=== PATIENT | female | born 1995 | race Hispanic/Latino ===

== ENCOUNTER 2018-01-19 18:58 | Emergency (ER) | payer BC ==
[2018-01-19 18:59] VITALS: BMI 22.6
[2018-01-19] MEDS ORDERED: Sodium Chloride 0.9% 1,000 ML IV STA (20:34)
[2018-01-19 21:25] LABS: URINE BILIRUBIN NEGATIVE (NEGATIVE); URINE BLOOD SMALL (NEGATIVE); URINE GLUCOSE (UA) NEGATIVE (NEGATIVE); URINE LEUKOCYTE ESTERASE NEGATIVE Leu/uL (NEGATIVE); URINE PROTEIN NEGATIVE mg/dL (<30 mg/dL); URINE UROBILINOGEN 0.2 E.U./dL (<1 E.U./dL)
[2018-01-19 21:33] LABS: URINE APPEARANCE CLEAR (CLEAR); URINE COLOR YELLOW (YELLOW)
[2018-01-19 21:37] LABS: BASO # 0.02 K/mm3 (0.0-2.0); BASO % 0.3 % (0.0-3.0); EOS % 0.5 % (1.5-5.0); GRAN # 2.98 (1.4-6.5); HEMOGLOBIN 14.1 g/dL (12.0-16.0); LYMPH # 3.5 (1.2-3.4); MEAN CELL VOLUME 89.8 fl (80.0-105.0); MEAN CORPUSCULAR HEMOGLOBIN 30.1 pg (25.0-35.0); MEAN CORPUSCULAR HGB CONC 33.5 g/dl (31.0-37.0); MEAN PLATELET VOLUME 9.4 fl (7.0-11.0); MONO # 0.9 (0.1-0.6); MONO % 12.2 % (1.0-6.0); RBC 4.69 10^6/uL (3.5-6.1); RED CELL DISTRIBUTION WIDTH 13.2 % (11.5-14.5); WHITE BLOOD COUNT 7.5 10^3/uL (4.5-11.0)
[2018-01-19 21:42] LABS: ALB/GLOB RATIO 1.2 (1.1-1.8); ALT/SGPT 167 U/L (7-56); AST/SGOT 119 U/L (14-36); BLOOD UREA NITROGEN 8 mg/dL (7-21); CALCIUM 9.2 mg/dL (8.4-10.5); GFR NON-AFRICAN AMERICAN > 60; LIPASE 33 U/L (23-300)
[2018-01-19 21:44] LABS: URINE BACTERIA MOD (NEG); URINE WBC 0 - 2 /hpf (0-6)
[2018-01-19] MEDS ORDERED: Iohexol 350 MG/100 ML VIAL ONE (21:52)
--- NOTE | 2018-01-19 22:06 | ED PDOC ---
Arrival/HPI <Andrea Delgado - Last Filed: 01/19/18 22:27> - General Historian: Patient - History of Present Illness Narrative History of Present Illness (Text): Mechelle Leyva is a 22 year old female who presents to the Emergency department complaining of chronic abdominal pain which worsened today while driving back from [place]. Patient states pain is located in the upper abdomen/epigastric region with some associated nausea and some episodes of diarrhea today. Patient has been seen by a traveling auditor and is being worked up for IBS. Patient denies any radiation to the back or urinary symptoms. Patient was seen at Urgent Care earlier today, had a rapid influenza performed which was negative due to complaints of fever, chills today, and nasal congestion. Patient also denies any cough. Symptom Onset: Gradual Symptom Course: Unchanged Activities at Onset: Light Context: Home <Martina Peoples - Last Filed: 01/20/18 00:54> - General Chief Complaint: Flu-like Symptoms Time Seen by Provider: 01/19/18 19:25 Past Medical History - Provider Review Nursing Documentation Reviewed: Yes - Past Medical History Past Medical History: No Previous - Psychiatric Hx Depression: No Hx Emotional Abuse: No Hx Physical Abuse: No Hx Substance Use: No - Past Surgical History Past Surgical History: No Previous - Surgical History Hx Orthopedic Surgery: Yes (L ACL October 2017) Other/Comment: breast reduction October 2016 - Suicidal Assessment Feels Threatened In Home Enviroment: No <Martina Peoples - Last Filed: 01/20/18 00:54> Family/Social History - Physician Review Nursing Documentation Reviewed: Yes Family/Social History: Unknown Family HX Smoking Status: Never Smoked Hx Alcohol Use: Yes Frequency of alcohol use: Socially Hx Substance Use: No Hx Substance Use Treatment: No <Martina Peoples - Last Filed: 01/20/18 00:54> Allergies/Home Meds <Andrea Delgado - Last Filed: 01/19/18 22:27> <Martina Peoples - Last Filed: 01/20/18 00:54> Allergies/Adverse Reactions: Allergies No Known Allergies Allergy (Verified 10/03/13 19:18) Review of Systems - Physician Review All systems were reviewed & negative as marked: Yes - Review of Systems Constitutional: Fevers Eyes: Normal ENT: Normal Respiratory: Other (+nasal congestion). absent: SOB, Cough Cardiovascular: Normal. absent: Chest Pain Gastrointestinal: Abdominal Pain, Diarrhea, Nausea. absent: Vomiting Genitourinary Female: Normal. absent: Dysuria, Frequency, Hematuria, Urine Output Changes Musculoskeletal: Normal. absent: Back Pain, Neck Pain Skin: Normal. absent: Rash Neurological: Normal. absent: Headache, Dizziness Endocrine: Normal Hemo/Lymphatic: Normal Psychiatric: Normal <Martina Peoples - Last Filed: 01/20/18 00:54> Physical Exam Vital Signs Temp Pulse Resp BP Pulse Ox 01/19/18 20:04 99.1 F 85 18 126/81 100 <Andrea Delgado - Last Filed: 01/19/18 22:27> Vital Signs Reviewed: Yes Vital Signs Temp Pulse Resp BP Pulse Ox 01/19/18 20:04 99.1 F 85 18 126/81 100 Temperature: Afebrile Blood Pressure: Normal Pulse: Regular Respiratory Rate: Normal Appearance: Positive for: Well-Appearing, Non-Toxic, Comfortable Pain Distress: None Mental Status: Positive for: Alert and Oriented X 3 - Systems Exam Head: Present: Atraumatic, Normocephalic Pupils: Present: PERRL Extroacular Muscles: Present: EOMI Conjunctiva: Present: Normal Mouth: Present: Moist Mucous Membranes Neck: Present: Normal Range of Motion Respiratory/Chest: Present: Clear to Auscultation, Good Air Exchange. No: Respiratory Distress, Accessory Muscle Use Cardiovascular: Present: Regular Rate and Rhythm, Normal S1, S2. No: Murmurs Abdomen: Present: Tenderness (Minimal epigastric tenderness). No: Distention, Peritoneal Signs Back: Present: Normal Inspection Upper Extremity: Present: Normal Inspection. No: Cyanosis, Edema Lower Extremity: Present: Normal Inspection. No: Edema Neurological: Present: GCS=15, CN II-XII Intact, Speech Normal Skin: Present: Warm, Dry, Normal Color. No: Rashes Psychiatric: Present: Alert, Oriented x 3, Normal Insight, Normal Concentration <Martina Peoples - Last Filed: 01/20/18 00:54> Medical Decision Making - Lab Interpretations Lab Results: 01/19/18 21:29 01/19/18 21:29 Lab Results 01/19/18 21:29: WBC 7.5, RBC 4.69, Hgb 14.1, Hct 42.1, MCV 89.8, MCH 30.1, MCHC 33.5, RDW 13.2, Plt Count 320, MPV 9.4, Gran % 40.0 L, Lymph % (Auto) 47.0 H, Simpson % (Auto) 12.2 H, Eos % (Auto) 0.5 L, Baso % (Auto) 0.3, Gran # 2.98, Lymph # (Auto) 3.5 H, Simpson # (Auto) 0.9 H, Eos # (Auto) 0.0, Baso # (Auto) 0.02 01/19/18 21:29: Sodium 137, Potassium 4.2, Chloride 103, Carbon Dioxide 24, Anion Gap 14, BUN 8, Creatinine 0.8, Est GFR ( Amer) > 60, Est GFR (Non- Af Amer) > 60, Random Glucose 77, Calcium 9.2, Total Bilirubin 0.5, AST 119 H, ALT 167 H, Alkaline Phosphatase 66, Total Protein 7.3, Albumin 4.0, Globulin 3.3, Albumin/Globulin Ratio 1.2, Lipase 33 01/19/18 21:29: Influenza Typ A,B (EIA) Negative for flu a/b 01/19/18 19:59: Urine Color Yellow, Urine Appearance Clear, Urine pH 6.0, Ur Specific Melber >= 1.030, Urine Protein Negative, Urine Glucose (UA) Negative, Urine Ketones 15 H, Urine Blood Small H, Urine Nitrate Negative, Urine Bilirubin Negative, Urine Urobilinogen 0.2, Ur Leukocyte Esterase Negative, Urine RBC 5 - 10, Urine WBC 0 - 2, Ur Epithelial Cells 4 - 5, Urine Bacteria Mod - RAD Interpretation Radiology Orders: 01/19/18 20:33 ABD & PELVIS IV CONTRAST ONLY [CT] Stat ABDOMEN COMPLETE [US] Stat - Medication Orders Current Medication Orders: Discontinued Medications Sodium Chloride (Sodium Chloride 0.9%) 1,000 mls @ 999 mls/hr IV .Q1H1M STA Stop: 01/19/18 21:34 Last Admin: 01/19/18 21:31 Dose: 999 mls/hr eMAR Start Stop Document 01/19/18 21:31 CNR (Rec: 01/19/18 21:32 CNR [id number]) Intravenous Solution Start Date 01/19/18 Start Time 21:32 End Date 01/19/18 End time 22:32 Total Infusion Time 60 Pantoprazole Sodium (Protonix Inj) 40 mg IVP STAT STA Stop: 01/19/18 20:35 Last Admin: 01/19/18 21:32 Dose: 40 mg IVP Administration Document 01/19/18 21:32 CNR (Rec: 01/19/18 21:32 CNR [id number]) Charges for Administration # of IVP Administrations 1 <Andrea Delgado - Last Filed: 01/19/18 22:27> ED Course and Treatment: Impression: 22 year old female complaining of chronic abdominal pain, nausea, diarrhea, fever, chills, and nasal congestion. Plan: -- CT Abdomen and Pelvis -- US Abdomen -- Labs, lipase -- Rapid influenza -- Urinalysis -- IV fluids -- Protonix -- Reassess and disposition Progress Notes: Patient is nontoxic well appearing with stable vital signs presenting with [severe] abdominal pain CBC wnl CMP wnl Lipase wnl Urinalysis Ultrasound COMMENTS: The liver is of uniform echo texture without evidence of mass or defect measuring 14.39 x 13.1 cm. There is no intra or extrahepatic biliary ductal dilatation. The common bile duct measures 0.38 cm. The gallbladder is physiologically distended without evidence of calculi. The gallbladder wall is not thickened measuring 0.23 cm and there is no pericholecystic fluid. There is no abdominal ascites. The visualized portions of abdominal aorta and inferior vena cava present no abnormalities. The visualized portions of the pancreas are unremarkable. The spleen is of uniform echo texture and does not appear enlarged measuring 10.48 x 3.31 cm. The right kidney measures 9.79 x 3.47 x 5.18 cm and the left kidney measures 9.63 x 4.79 x 5.69 cm. Both kidneys are free of hydronephrosis. IMPRESSION: Normal study. CAT scan: FINDINGS: LUNG BASES: The lung bases appear clear. No pleural effusions are seen. LIVER: Unremarkable. GALLBLADDER AND BILE DUCTS: The gallbladder appears within normal limits. No radioopaque gallstones are seen. No biliary ductal dilatation is evident. PANCREAS: Unremarkable. SPLEEN: Unremarkable. ADRENAL GLANDS: Unremarkable. KIDNEYS, URETERS, AND BLADDER: The kidneys appear within normal limits. There is no hydronephrosis or hydroureter. No urinary calculi are seen. STOMACH AND BOWEL: Unremarkable appearance of the stomach and bowel. No evidence of bowel obstruction. No evidence suggesting enteritis or colitis. APPENDIX: No evidence of acute appendicitis on CT examination. PERITONEUM: No free fluid. No free air. LYMPH NODES: No lymphadenopathy is evident. REPRODUCTIVE: Unremarkable as visualized. VASCULATURE: No evidence of abdominal aortic aneurysm. BONES: No aggressive appearing osseous lesion. No acute osseous pathology evident. IMPRESSION: No acute intra-abdominal or pelvic abnormality. Patient reassessment: pt is non toxic well appearing; no distress. stable vitals . symptoms resolved after GI cocktail. Discussed all results with patient in depth. advised f/u with GI specialist. advised taking pepcid daily and return if symptoms worsen,persist or if new symptoms develop. Patient verbalizes understanding of discharge instructions and need for immediate followup. all aspects of this case were discussed the attending of record. Impression: Abdominal pain, elevated lfts increase fluids follow up with GI specialist within the next 2 days pepcid 1 tablet twice daily follow up with the primary care physician within the next 2 days. return immediately if symptoms worsen,persist or if new symptoms develop. Reassessment Condition: Re-examined, Improved - Lab Interpretations Lab Results: 01/19/18 21:29 01/19/18 21:29 Lab Results 01/19/18 21:29: WBC 7.5, RBC 4.69, Hgb 14.1, Hct 42.1, MCV 89.8, MCH 30.1, MCHC 33.5, RDW 13.2, Plt Count 320, MPV 9.4, Gran % 40.0 L, Lymph % (Auto) 47.0 H, Simpson % (Auto) 12.2 H, Eos % (Auto) 0.5 L, Baso % (Auto) 0.3, Gran # 2.98, Lymph # (Auto) 3.5 H, Simpson # (Auto) 0.9 H, Eos # (Auto) 0.0, Baso # (Auto) 0.02 01/19/18 21:29: Sodium 137, Potassium 4.2, Chloride 103, Carbon Dioxide 24, Anion Gap 14, BUN 8, Creatinine 0.8, Est GFR ( Amer) > 60, Est GFR (Non- Af Amer) > 60, Random Glucose 77, Calcium 9.2, Total Bilirubin 0.5, AST 119 H, ALT 167 H, Alkaline Phosphatase 66, Total Protein 7.3, Albumin 4.0, Globulin 3.3, Albumin/Globulin Ratio 1.2, Lipase 33 01/19/18 21:29: Influenza Typ A,B (EIA) Negative for flu a/b 01/19/18 19:59: Urine Color Yellow, Urine Appearance Clear, Urine pH 6.0, Ur Specific Melber >= 1.030, Urine Protein Negative, Urine Glucose (UA) Negative, Urine Ketones 15 H, Urine Blood Small H, Urine Nitrate Negative, Urine Bilirubin Negative, Urine Urobilinogen 0.2, Ur Leukocyte Esterase Negative, Urine RBC 5 - 10, Urine WBC 0 - 2, Ur Epithelial Cells 4 - 5, Urine Bacteria Mod - RAD Interpretation Radiology Orders: 01/19/18 20:33 ABD & PELVIS IV CONTRAST ONLY [CT] Stat ABDOMEN COMPLETE [US] Stat - Medication Orders Current Medication Orders: Discontinued Medications Sodium Chloride (Sodium Chloride 0.9%) 1,000 mls @ 999 mls/hr IV .Q1H1M STA Stop: 01/19/18 21:34 Last Admin: 01/19/18 21:31 Dose: 999 mls/hr eMAR Start Stop Document 01/19/18 21:31 CNR (Rec: 01/19/18 21:32 CNR [id number]) Intravenous Solution Start Date 01/19/18 Start Time 21:32 End Date 01/19/18 End time 22:32 Total Infusion Time 60 Pantoprazole Sodium (Protonix Inj) 40 mg IVP STAT STA Stop: 01/19/18 20:35 Last Admin: 01/19/18 21:32 Dose: 40 mg IVP Administration Document 01/19/18 21:32 CNR (Rec: 01/19/18 21:32 CNR [id number]) Charges for Administration # of IVP Administrations 1 <Martina Peoples - Last Filed: 01/20/18 00:54> - PA / [employer] INST[employer]ER / Resident Statement / has reviewed & agrees with the documentation as recorded. / has examined the patient and agrees with the treatment plan. <Andrea Delgado - Last Filed: 01/19/18 22:27> - Scribe Statement The provider has reviewed the documentation as recorded by the Anita Fairbanks Provider Scribe Attestation: All medical record entries made by the Scribe were at my direction and personally dictated by me. I have reviewed the chart and agree that the record accurately reflects my personal performance of the history, physical exam, medical decision making, and the department course for this patient. I have also personally directed, reviewed, and agree with the discharge instructions and disposition. <Martina Peoples - Last Filed: 01/20/18 00:54> Disposition/Present on Arrival <Andrea Delgado - Last Filed: 01/19/18 22:27> - Present on Arrival Any Indicators Present on Arrival: No History of DVT/PE: No History of Uncontrolled Diabetes: No Urinary Catheter: No History of Decub. Ulcer: No History Surgical Site Infection Following: None - Disposition Have Diagnosis and Disposition been Completed?: Yes Disposition Time: 22:15 Patient Plan: Discharge <CatejackelineMartina - Last Filed: 01/20/18 00:54> - Disposition Diagnosis: Abdominal pain, Elevated liver function tests Disposition: HOME/ ROUTINE Patient Problems: Current Active Problems Problem Status Onset Abdominal pain Acute Elevated liver function tests Acute Condition: GOOD Discharge Instructions (ExitCare): Acute Abdomen (Belly Pain), Adult (DC) Additional Instructions: increase fluids follow up with GI specialist within the next 2 days pepcid 1 tablet twice daily follow up with the primary care physician within the next 2 days. return immediately if symptoms worsen,persist or if new symptoms develop. Prescriptions: Famotidine [Pepcid] 20 mg PO DAILY #30 tab Referrals: Iraj King MD [Staff Provider] - Follow up with primary Magda Clemens MD [Medical Doctor] - Follow up with primary [facility] [Outside] - Follow up with primary Forms: [facility] (Swedish), WORK NOTE
[2018-01-19] MEDS ORDERED: Atrop/Hyosc/Scopal/PB Elixir (120 ml) PO STA (23:31)
[2018-01-19] MEDS ORDERED: Alum-Mag Hydrox-Simethicone Susp (30 mL) PO STA (23:31)
[2018-01-19] MEDS ORDERED: Lidocaine 2% Viscous 100 ml PO STA (23:31)
[2018-01-20 01:12] VITALS: BP 114/61; PULSE 93; RESP 18; TEMP 98.3; O2SAT 97
--- NOTE | 2018-01-20 09:39 | CT ---
Date of service: 01/19/2018 PROCEDURE: CT Abdomen and Pelvis with contrast HISTORY: abd pain COMPARISON: None. TECHNIQUE: Contrast dose: 100 cc of Omni 350 Radiation dose: Total exam DLP = 277.58 mGy-cm. This CT exam was performed using one or more of the following dose reduction techniques: Automated exposure control, adjustment of the mA and/or kV according to patient size, and/or use of iterative reconstruction technique. FINDINGS: LOWER THORAX: Unremarkable. LIVER: Unremarkable. No gross lesion or ductal dilatation. GALLBLADDER AND BILE DUCTS: Unremarkable. PANCREAS: Unremarkable. No gross lesion or ductal dilatation. SPLEEN: Unremarkable. ADRENALS: Unremarkable. No mass. KIDNEYS AND URETERS: Unremarkable. No hydronephrosis. No solid mass. VASCULATURE: Unremarkable. No aortic aneurysm. No aortic atherosclerotic calcification or mural plaque present. BOWEL: Unremarkable. No obstruction. No gross mural thickening. APPENDIX: Normal appendix. PERITONEUM: Unremarkable. No free fluid. No free air. LYMPH NODES: Unremarkable. No enlarged lymph nodes. BLADDER: Unremarkable. REPRODUCTIVE: Unremarkable. BONES: No acute fracture. OTHER FINDINGS: The report concurs with the preliminary [facility] report IMPRESSION: Unremarkable contrast enhanced CT of the abdomen and pelvis.
--- NOTE | 2018-01-20 13:29 | US ---
Date of service: 01/19/2018 HISTORY: abd pain COMPARISON: None. TECHNIQUE: Sonographic evaluation of the abdomen. FINDINGS: LIVER: Measures 14.4 cm. Normal echogenicity of the liver parenchyma. No mass. No intrahepatic bile duct dilatation. GALLBLADDER: Unremarkable. No gallstones. No sonographic Hyatt's sign elicited. COMMON BILE DUCT: Measures 3.8 mm. No stones. No dilatation. PANCREAS: The tail of the pancreas is obscured by overlying bowel gas with remainder unremarkable. RIGHT KIDNEY: Measures 9.8cm. Normal echogenicity. No calculus, mass, or hydronephrosis. LEFT KIDNEY: Measures 9.6cm. Normal echogenicity. No calculus, mass, or hydronephrosis. SPLEEN: Normal in size and contour, measuring 10.5 cm. No mass. AORTA: No aneurysmal dilatation. IVC: Unremarkable. OTHER FINDINGS: None. IMPRESSION: Unremarkable abdomen ultrasound with exception obscuring the pancreatic tail by overlying bowel gas. [facility] preliminary [facility], 01[facility]19[facility]2018.
== END 2018-01-20 01:03 | disposition home or self-care (01) ==
LOC: ED 18:58
DX: R94.5 Abnormal results of liver function studies (principal); R10.9 Unspecified abdominal pain
CPT/HCPCS: 74177; 76700; 80053; 81001; 83690; 85025; 87804; 96361; 96374; 96375; 99284; C9113; J2405; J7030; Q9967